=== PATIENT | male | born 1965 | race Caucasian/White ===

== ENCOUNTER 2025-05-20 18:13 | Emergency (ER) | payer OTHER ==
[2025-05-20 18:30] LABS: BASOPHILS ABSOLUTE AUTO 0.05 K/uL (0.00-0.10); BASOPHILS PERCENT AUTO 0.5 % (0.1-1.3); EOSINOPHILS ABSOLUTE AUTO 0.27 K/uL (0.00-0.40); EOSINOPHILS PERCENT AUTO 2.7 % (0.0-5.4); IMMATURE GRAN ABSOLUTE AUTO 0.07 K/uL (0.00-0.23); IMMATURE GRAN PERCENT AUTO 0.7 % (0.0-0.7); LYMPHOCYTES ABSOLUTE AUTO 2.83 K/uL (0.8-3.3); LYMPHOCYTES PERCENT AUTO 28.6 % (11.4-47.7); MONOCYTES ABSOLUTE AUTO 1.15 K/uL (0.20-0.90); MONOCYTES PERCENT AUTO 11.6 % (3.3-12.6); NEUTROPHILS ABSOLUTE AUTO 5.52 K/uL (1.0-7.6); NEUTROPHILS PERCENT AUTO 55.9 % (40.0-78.1); PLATELET COUNT,PLT 247 K/uL (130-375); RED BLOOD CELL COUNT 5.25 M/uL (4.14-5.76); WHITE BLOOD CELL COUNT,WBC 9.9 K/uL (3.2-11.0)
[2025-05-20] MEDS ORDERED: Naloxone 0.4 MG/ML SDV IVPUSH PRN (18:30)
[2025-05-20 18:57] LABS: A/G RATIO 1.1 (1.2-2.2); ALANINE AMINOTRANSFERASE,ALT 51 U/L (12-78); ASPARTATE AMNIOTRANSFERASE,AST 33 U/L (15-37); BILIRUBIN TOTAL 0.5 mg/dL (0.2-1.0); BLOOD UREA NITROGEN,BUN 14 mg/dL (7-18); CARBON DIOXIDE,CO2 29 mmol/L (21-32); CHLORIDE,CL 104 mmol/L (100-108); CREATININE 1.1 mg/dL (0.8-1.3); ESTIMATED GFR 76 mL/min (>60); GLUCOSE RANDOM 165 mg/dL (74-106); POTASSIUM,K 3.7 mmol/L (3.6-5.2); PROTEIN TOTAL,TP 8.0 g/dL (6.4-8.2); SODIUM,NA 143 mmol/L (140-148); TROPONIN I HIGH SENSITIVITY 12.7 pg/mL (<=60.3)
[2025-05-20] MEDS: hydrALAZINE 20 MG/ML SDV IVPUSH ONE (20:05)
[2025-05-20] MEDS: hydrALAZINE 20 MG/ML SDV ONE (20:16)
[2025-05-20] MEDS ORDERED: propofoL 1,000 MG/100 ML 100 ML ONE (21:30)
[2025-05-20] MEDS: PROPOFOL IV ONE (21:35)
[2025-05-20] MEDS ORDERED: Propofol 200 MG/20 ML SDV IV ONE (21:35)
[2025-05-20 21:42] LABS: INR 1.0; PTT,PARTIAL THROMBOPLSTIN TIME 23.4 sec (21.8-27.3)
[2025-05-20] MEDS: Amiodarone 150 MG/3 ML SDV IV ONE ×2 (21:44→21:55)
[2025-05-20] MEDS: Magnesium Sulfate (4.06 MEQ/ML) 1 GM/2 ML SDV IV ONE ×4 (21:53→22:19)
[2025-05-20] MEDS ORDERED: SODIUM CHLORIDE ONE (22:05)
[2025-05-20] MEDS ORDERED: EPINEPHRINE 4 MG/250 ML ONE (22:05)
[2025-05-20] MEDS: Calcium Chloride 10% 1 GM/10 ML Syringe IV ONE (22:06)
[2025-05-20 22:15] LABS: BASOPHILS ABSOLUTE AUTO 0.05 K/uL (0.00-0.10); BASOPHILS PERCENT AUTO 0.3 % (0.1-1.3); EOSINOPHILS ABSOLUTE AUTO 0.10 K/uL (0.00-0.40); EOSINOPHILS PERCENT AUTO 0.7 % (0.0-5.4); IMMATURE GRAN ABSOLUTE AUTO 0.21 K/uL (0.00-0.23); IMMATURE GRAN PERCENT AUTO 1.4 % (0.0-0.7); LYMPHOCYTES ABSOLUTE AUTO 3.28 K/uL (0.8-3.3); LYMPHOCYTES PERCENT AUTO 22.0 % (11.4-47.7); MONOCYTES ABSOLUTE AUTO 1.46 K/uL (0.20-0.90); MONOCYTES PERCENT AUTO 9.8 % (3.3-12.6); NEUTROPHILS ABSOLUTE AUTO 9.82 K/uL (1.0-7.6); NEUTROPHILS PERCENT AUTO 65.8 % (40.0-78.1); PLATELET COUNT,PLT 226 K/uL (130-375); RED BLOOD CELL COUNT 5.41 M/uL (4.14-5.76); WHITE BLOOD CELL COUNT,WBC 14.9 K/uL (3.2-11.0)
[2025-05-20 22:17] LABS: A/G RATIO 1.2 (1.2-2.2); ALANINE AMINOTRANSFERASE,ALT 53 U/L (12-78); ASPARTATE AMNIOTRANSFERASE,AST 32 U/L (15-37); BILIRUBIN TOTAL 0.7 mg/dL (0.2-1.0); BLOOD UREA NITROGEN,BUN 13 mg/dL (7-18); CARBON DIOXIDE,CO2 29 mmol/L (21-32); CHLORIDE,CL 102 mmol/L (100-108); CREATININE 1.1 mg/dL (0.8-1.3); EST CRCL DRUG DOSING (CG) 75.11 mL/min; ESTIMATED GFR 76 mL/min (>60); GLUCOSE RANDOM 182 mg/dL (74-106); POTASSIUM,K 3.7 mmol/L (3.6-5.2); PROTEIN TOTAL,TP 8.5 g/dL (6.4-8.2); SODIUM,NA 142 mmol/L (140-148)
[2025-05-20 22:18] LABS: TROPONIN I HIGH SENSITIVITY 172.3 pg/mL (<=60.3)
[2025-05-20] MEDS: SODIUM CHLORIDE IV SCH (22:24)
[2025-05-20] MEDS: EPINEPHRINE IV SCH (22:24)
[2025-05-20 23:31] LABS: BASE EXCESS ARTERIAL -22.5 mm/L; BICARBONATE,ARTERIAL 10.1 mmol/L (22.0-26.0); O2 SATURATION ARTERIAL 95.3 % (95.0-98.0); OXYHEMOGLOBIN 93.9 %; PCO2 ARTERIAL 41.0 mmHg (35.0-42.0); PO2 ARTERIAL 121.0 mmHg (75.0-100.0); TOTAL HEMOGLOBIN 18.5 g/dL (13.5-18.0)
[2025-05-20 23:32] LABS: INR 1.1; PTT,PARTIAL THROMBOPLSTIN TIME 24.8 sec (21.8-27.3)
[2025-05-22] MEDS: Heparin Sodium 5,000 Units/ML Vial IVPUSH ONE (09:30)
[2025-05-22] MEDS: Nitroglycerin 0.4 MG Tab.SL SL ONE (09:30)
== END 2025-05-20 22:49 | disposition expired ==
LOC: JP.ED 18:13
DX: I46.9 Cardiac arrest, cause unspecified (principal); Z79.899 Other long term (current) drug therapy; Z79.82 Long term (current) use of aspirin
CPT/HCPCS: 31500; 36415; 36600; 51702; 71045; 80053; 82803; 84484; 85025; 85379; 85610; 85730; 92950; 93005; 96374; 96375; 99291; 99292; A9270; J0168; J0282; J0360; J2270; J2704; J3490; J7030; 93010; 99285